=== PATIENT | male | born 1965 | race Caucasian/White ===

== ENCOUNTER 2017-10-29 10:54 | Day surgery (SDC) | payer BC ==
[2017-10-28 10:20] VITALS: BMI 35.2
[2017-10-29] MEDS ORDERED: CEFAZOLIN/Water 2 GM/20 ML SYRINGE ONE (12:00)
[2017-10-29 12:29] LABS: #Basophils 0.1 thou/uL (0.0-0.2); #Eosinphils 0.2 thou/uL (0.0-0.7); #Lymphocytes 2.9 thou/uL (1.20-3.40); #Monocytes 0.5 thou/uL (0.11-0.59); #Neutrophils 3.7 thou/uL (1.40-6.50); %Eosinophils 2.8 % (0.0-10.0); %Lymphocytes 38.9 % (21.0-51.0); %Monocytes 6.9 % (0.0-10.0); Hematocrit 39.3 % (42.0-52.0); Mean Platelet Volume 8.8 fL (7.4-10.4); Red Blood Cell (RBC) Count 4.87 mill/uL (4.70-6.10); White Blood Cell (WBC) Count 7.3 thou/uL (4.8-10.8)
[2017-10-29] MEDS ORDERED: Bupivacaine PF 0.5% 30 ML VIAL ONE (13:53)
[2017-10-29] MEDS ORDERED: Bacitracin Zinc Ointment 30 gm TUBE ONE (13:53)
[2017-10-29] MEDS ORDERED: Fentanyl 100 MCG/2 ML VIAL ONE (14:02)
[2017-10-29] MEDS ORDERED: Ondansetron HCl/PF 4 MG/2 ML Vial ONE (15:02)
[2017-10-29] MEDS ORDERED: ePHEDrine/0.9% NaCl/PF SYRINGE 50 mg/10 ml ONE (15:02)
[2017-10-29] MEDS ORDERED: Ketorolac Tromethamine 30 MG/ML VIAL ONE ×3 (15:02→15:26)
[2017-10-29] MEDS ORDERED: Propofol 200 MG/20 ML VIAL ONE (15:02)
[2017-10-29] MEDS ORDERED: Glycopyrrolate 0.2 MG/ML 5 ML SYRINGE ONE (15:02)
--- NOTE | 2017-10-29 19:09 | RAD ---
RIGHT WRIST THREE VIEWS 10/29/17 HISTORY: Intraoperative films. These C-arm projections show screw placement across the scaphoid. There is also plate and screws gael g the distal radius and ulna. IMPRESSION: Postoperative changes of the right wrist. There is once again noted to be screw placement across the scaphoid and a plate and screws along the distal ulna. There is now some surgical anchors along the d orsal side of the carpal bone region. In addition, on the C-arm views, there appears to be invaginati on of the capitate between the scaphoid and lunate. POS: [facility]
--- NOTE | 2017-11-01 13:59 | OP ---
DATE OF SURGERY: 10/29/2017 PREOPERATIVE DIAGNOSIS: Painful deep implant capitoscaphoid and capitolunate joints. FINDINGS: 1. Implants still in place but irritating the subcutaneous portion of the tendons. 2. A 5-mm widening of the scapholunate joint with no instability, but the capitate and lunate moved together while the scaphoid does not travel with the lunate indicative of dissociation and poss ible failed ligament repair. 3. No gross evidence of nonunion as of yet of the fracture but still some small gap seen in the scap hoid fracture from previous transscaphoid perilunate dislocation. PROCEDURE PERFORMED: 1. Removal of deep implant, . 2. C-arm supervision, [id number]. COMPLICATIONS: None. TOURNIQUET TIME: 12 minutes. DESCRIPTION OF PROCEDURE: After successful general endotracheal anesthesia with LMA technique, the l imb was prepped and draped. C-arm was brought into the field. We found the wires were located in th e sagittal plane and checked this area with 3 mL of normal saline then made an oblique 6-mm incision carried to skin and subcutaneous tissue to identify both wires. They came out easily. There is no c hange in alignment of the capitate, lunate, hamate, or any other bone seen in the C-arm except for wh en we did fluoroscopy, we could see there was a small amount of widening of the baseline 3-4 mm inter gab between the scaphoid and lunate into approximately 4-5 mm. The wires were now out, placed in a p rotective bag to be given to the patient in a sterile urine cup, irrigated the wound, deflated the to urniquet, obtained hemostasis, closed the wound with interrupted 4-0 nylon in a simple pattern. Bulk y dressing was applied along with palmar splint. The patient left the operating room without complic ations.
== END 2017-10-29 18:30 | disposition home or self-care (01) ==
LOC: SDC 10:54
PROVIDERS: ATTEND Orthopaedic Surgery Hand Surgery
PROC: 0XP60YZ Removal of Other Device from Right Upper Extremity, Open Approach (ICD-10-PCS; principal; 2017-10-29)
DX: T84.84XA Pain due to internal orthopedic prosthetic devices, implants and grafts, initial encounter (principal); I10 Essential (primary) hypertension; Z88.1 Allergy status to other antibiotic agents; Z79.899 Other long term (current) drug therapy; Z98.890 Other specified postprocedural states; Z87.891 Personal history of nicotine dependence
CPT/HCPCS: 36415; 76001; 85025; 93005; 93010; 96372; J1885; J2405; J2704; J3010; J3490; S0020

== ENCOUNTER 2019-05-04 10:13 | Outpatient (CLI) | payer BC ==
--- NOTE | 2019-05-04 14:37 | MRI ---
MRI LUMBAR SPINE NONCONTRAST: DATE: 05/04/19 HISTORY: 53-year-old male with lumbar radiculopathy. Right lower extremity pain, paresthesia, and numbness. Lo w back pain. COMPARISON: No prior lumbar spine MRIs. CT of chest/abdomen/pelvis of 06/05/17 used for counting of levels of the spine. Plain radiograph of 07/07/17 is also available. FINDINGS: There are 6 non-rib bearing lumbar-region vertebrae. However, when the 06/05/17 CT is reviewed, it is noted that there are only 11 paired ribs. Therefore, the last rib bearing vertebra will be designate d as T11, and the first non-rib bearing lumbar-type vertebra will be designated as T12. This would ma ke the lowest lumbar level L5 rather than L6. T12 would be the level of the old compression fracture, with mild anterior wedge compression loss of height. There is region of bone marrow edema at the ant erior inferior corner of T12, which probably represents Modic Type I change. The rest of the vertebra l body heights are maintained. T12-L1: Normal. L1-2: Normal. Conus medullaris terminates at mid L1 level. L2-3: Normal. L3-4: Mild disc space narrowing and mild disc desiccation. Mild diffuse disc bulge. Mild bilateral d egenerative facet changes. Mild bilateral neural foraminal stenosis. No significant central spinal ca nal stenosis. The disc bulge is asymmetrically larger at the left lateral and far lateral aspects of the disc, where there is peripheral, broad, crescentic annular fissure. L4-5: Moderate disc space narrowing. Slight degenerative retrolisthesis of L4 on L5. Schmorl's node at posterior superior end plate of L5 at midline. Diffuse disc bulge. Moderate right facet DJD. Mild to moderate left facet DJD. Severe right neural foraminal stenosis. Moderate to severe left neural fo raminal stenosis. Lateral recess stenosis bilaterally, right worse than left. Mild to moderate centra l spinal canal stenosis. Small posterior epidural fat pad. Moderate thecal sac stenosis. L5-S1: Two right-sided large transversely oriented screws from just lateral to the SI joint, across the right sacral ala, and distal tips to the left of midline in the sacral body, result in significan t magnetic susceptibility artifact that completely covers and obscures the contents of the spinal can al, and significant distorts the bilateral neural foramina, and also significantly partially obscures the disc space and the sacral bodies. IMPRESSION: 1. Transitional level at thoracolumbar junction. The patient only has 11 paired ribs. For the purpos es of this report, the first non-rib bearing vertebra is designated as T12 rather than L1. Lowest lum bar level is designated as L5. 2. Lumbar spondylosis, with moderate degenerative disc disease at L4-5. 3. Severe right neural foraminal stenosis and moderate-severe left neural foraminal stenosis at L4-5 . 4. Status post arthrodesis of right sacroiliac joint. Large ferromagnetic hardware causes severe art ifact that almost completely obscures the L5-S1 level. 5. Old mild compression fracture of T12. JN R POS: [facility]
== END 2019-05-04 10:14 | disposition home or self-care (01) ==
LOC: TBSIIMAG 10:13
PROVIDERS: ATTEND Neurological Surgery
DX: M51.16 Intervertebral disc disorders with radiculopathy, lumbar region (principal); M47.26 Other spondylosis with radiculopathy, lumbar region; M48.061 Spinal stenosis, lumbar region without neurogenic claudication; Z98.1 Arthrodesis status; Z87.81 Personal history of (healed) traumatic fracture
CPT/HCPCS: 72148

== ENCOUNTER 2021-11-17 16:34 | Outpatient (CLI) | payer BC ==
[2021-11-17 21:01] LABS: SARS-CoV-2 NAA Rapid Test Not Detected (NotDetected)
== END 2021-11-17 16:35 | disposition home or self-care (01) ==
LOC: LABBT 16:34
PROVIDERS: ATTEND Specialist
DX: Z01.812 Encounter for preprocedural laboratory examination (principal); N18.6 End stage renal disease; Z20.822 Contact with and (suspected) exposure to COVID-19
CPT/HCPCS: U0002

== ENCOUNTER 2021-11-18 09:35 | Inpatient (IN) | payer BC ==
[~2021-11-18 09:35] MED LIST: Heparin 10,000 UNITS/ 10 ML VIAL ONE
[2021-11-18] MEDS ORDERED: Bupivacaine PF 0.5% 30 ML VIAL ONE (10:18)
[2021-11-18] MEDS ORDERED: Heparin 10,000 UNITS/ 10 ML VIAL ONE (10:18)
[2021-11-18] MEDS ORDERED: Lidocaine 1% w/Epinephrine 1:100K 30 ML VIAL ONE (10:18)
[2021-11-18] MEDS ORDERED: ceFAZolin 2 GM/DEX 5% 100 ML BAG ONE (10:38)
[2021-11-18] MEDS ORDERED: Fentanyl 100 MCG/2 ML VIAL ONE (10:45)
[2021-11-18 10:51] LABS: #Basophils 0.1 thou/uL (0.0-0.2); #Eosinphils 0.3 thou/uL (0.0-0.7); #Monocytes 0.5 thou/uL (0.11-0.59); #Neutrophils 4.4 thou/uL (1.40-6.50); %Basophils 0.9 % (0.0-1.0); %Eosinophils 4.1 % (0.0-10.0); %Lymphocytes 16.1 % (21.0-51.0); %Monocytes 7.4 % (0.0-10.0); %Neutrophils 71.5 % (42.0-75.0); Mean Corpuscular HGB CONC 31.3 g/dL (32.0-36.0); Mean Corpuscular Hemoglobin 27.8 pg (27.0-31.0); Mean Corpuscular Volume 88.8 fL (78.0-98.0); Mean Platelet Volume 11.1 fL (7.4-10.4); Platelet Count 133 thou/uL (130-400); RBC Distribution Width 12.5 % (11.5-14.5); Red Blood Cell (RBC) Count 3.61 mill/uL (4.70-6.10); White Blood Cell (WBC) Count 6.2 thou/uL (4.8-10.8)
[2021-11-18 11:12] LABS: Anion Gap 15 mmol/L (10-20); BUN (Urea Nitrogen) 73 mg/dL (8.4-25.7); Calc. Creatinine Clearance 0 mL/min (70-130); Calcium 8.5 mg/dL (7.8-10.44); Carbon Dioxide 22 mmol/L (22-29); Chloride 108 mmol/L (98-107); Glucose 95 mg/dL (70-105); Potassium 5.1 mmol/L (3.5-5.1); Sodium 140 mmol/L (136-145)
[2021-11-18] MEDS ORDERED: Midazolam HCl 2 mg/2 ml Vial ONE (11:55)
[2021-11-18] MEDS ORDERED: Lidocaine 1% PF 5 ML VIAL ONE (11:58)
[2021-11-18] MEDS ORDERED: Sodium Chloride 0.9% 10 ML ONE (11:58)
[2021-11-18] MEDS ORDERED: Ondansetron PF 4 MG/2 ML Vial IVP PRN (12:36)
[2021-11-18] MEDS ORDERED: hydrALAZINE 20 MG/ML VIAL SLOW IVP PRN (12:36)
[2021-11-18] MEDS ORDERED: Ondansetron ODT 4 MG TAB PO PRN (12:36)
[2021-11-18 15:53] LABS: HBSAg Index 0.26 S/CO (0-0.99); Hep B Core Total Ab Non-Reactive (NonReactive); Hep B Core Total Index 0.06 S/CO (0-0.79); Hep B Surf Ag Non-Reactive S/CO (NonReactive)
[2021-11-18 15:54] LABS: HBSAB Concentration Less than 8.00 mIU/mL; Hep B Surf AB Non-Reactive (NonReactive)
[2021-11-18 15:55] LABS: Hep C IgG Ab Non-Reactive (NonReactive); Hep C Index 0.19 S/CO (0-0.79)
[2021-11-18] MEDS: hydrALAZINE 25 MG TAB PO SCH ×3 (16:13→20:37)
[2021-11-18 17:02] VITALS: BMI 34.4
[2021-11-18] MEDS ORDERED: Calcium Carbonate 500 MG ChewTAB PO PRN (17:24)
[2021-11-18] MEDS ORDERED: Senokot S 8.6-50 MG TAB PO PRN (17:24)
[2021-11-18] MEDS ORDERED: Acetaminophen 325 MG TAB PO PRN (17:24)
[2021-11-18] MEDS ORDERED: Morphine 4 MG/ML VIAL SLOW IVP PRN (18:47)
[2021-11-18] MEDS: Famotidine 20 MG TAB PO SCH (20:38)
[2021-11-18] MEDS: traMADol HCl 50 MG TAB PO PRN (20:38)
[2021-11-19 06:51] LABS: #Basophils 0.1 thou/uL (0.0-0.2); #Eosinphils 0.3 thou/uL (0.0-0.7); #Lymphocytes 1.1 thou/uL (1.20-3.40); #Monocytes 0.6 thou/uL (0.11-0.59); #Neutrophils 5.3 thou/uL (1.40-6.50); %Basophils 0.9 % (0.0-1.0); %Eosinophils 3.8 % (0.0-10.0); %Lymphocytes 15.1 % (21.0-51.0); %Monocytes 8.2 % (0.0-10.0); Hemoglobin 10.9 g/dL (14.0-18.0); Mean Corpuscular HGB CONC 33.2 g/dL (32.0-36.0); Mean Corpuscular Hemoglobin 28.9 pg (27.0-31.0); Mean Corpuscular Volume 87.2 fL (78.0-98.0); Mean Platelet Volume 10.3 fL (7.4-10.4); Platelet Count 145 thou/uL (130-400); RBC Distribution Width 12.6 % (11.5-14.5); Red Blood Cell (RBC) Count 3.78 mill/uL (4.70-6.10); White Blood Cell (WBC) Count 7.4 thou/uL (4.8-10.8)
[2021-11-19 07:12] LABS: Anion Gap 15 mmol/L (10-20); BUN (Urea Nitrogen) 50 mg/dL (8.4-25.7); Calc. Creatinine Clearance 20 mL/min (70-130); Calcium 8.6 mg/dL (7.8-10.44); Carbon Dioxide 23 mmol/L (22-29); Chloride 104 mmol/L (98-107); Glucose 94 mg/dL (70-105); Potassium 4.5 mmol/L (3.5-5.1); Sodium 137 mmol/L (136-145)
[2021-11-19] MEDS ORDERED: Tuberculin PPD 0.1 ML VIAL I-DERMAL SCH (08:00)
[2021-11-19] MEDS: hydrALAZINE 25 MG TAB PO SCH ×4 (08:30→20:09)
[2021-11-19] MEDS ORDERED: Heparin 10,000 UNITS/ 10 ML VIAL ONE (08:36)
[2021-11-19] MEDS ORDERED: Furosemide 20 MG TAB PO SCH (09:00)
[2021-11-19 12:48] LABS: HBCM Index 0.06 S/CO (0-0.79); HBSAg Index 0.28 S/CO (0-0.99); Hep A IgM AB Non-Reactive (NonReactive); Hep A IgM S/CO 0.13 S/CO (0-0.79); Hep B Surf Ag Non-Reactive S/CO (NonReactive); Hep C IgG Ab Non-Reactive (NonReactive); Hep C Index 0.19 S/CO (0-0.79); Hepatitis B Core IgM Abs Non-Reactive (NonReactive)
[2021-11-19] MEDS: Labetalol 100 MG TAB PO SCH (13:18)
[2021-11-19] MEDS: Famotidine 20 MG TAB PO SCH (20:10)
[2021-11-20] MEDS: hydrALAZINE 25 MG TAB PO SCH ×3 (05:09→17:42)
[2021-11-20] MEDS: Labetalol 100 MG TAB PO SCH (05:10)
[2021-11-20] MEDS ORDERED: Lidocaine 1% (PF) 30 ML VIAL ONE (06:25)
[2021-11-20] MEDS ORDERED: EPINEPHrine 1 MG/ML AMP ONE (06:25)
[2021-11-20] MEDS ORDERED: Heparin 5,000 UNITS/ML VIAL ONE (06:25)
[2021-11-20] MEDS ORDERED: Bupivacaine PF 0.5% 30 ML VIAL ONE (06:25)
[2021-11-20] MEDS ORDERED: Protamine Sulfate 50 MG/5 ML VIAL ONE (06:35)
[2021-11-20] MEDS ORDERED: Heparin 10,000 UNITS/ 10 ML VIAL ONE (06:35)
[2021-11-20] MEDS ORDERED: Fentanyl 100 MCG/2 ML VIAL ONE (07:06)
[2021-11-20] MEDS ORDERED: Sodium Chloride 0.9% 100 ML ONE (07:54)
[2021-11-20] MEDS ORDERED: CEFAZOLIN 1 GM VIAL ONE (07:54)
[2021-11-20] MEDS ORDERED: Promethazine HCl 25 MG/ML VIAL IVPB PRN (09:58)
[2021-11-20] MEDS ORDERED: Ondansetron HCl/PF 4 MG/2 ML Vial IVP PRN (09:58)
[2021-11-20] MEDS ORDERED: Promethazine HCl 25 MG/ML VIAL IM PRN (09:58)
[2021-11-20] MEDS: traMADol HCl 50 MG TAB PO PRN (15:16)
[2021-11-20 17:22] VITALS: TEMP 97.7
[2021-11-20 17:43] VITALS: BP 149/92
== END 2021-11-20 18:31 | disposition home or self-care (01) | DRG 673 ==
LOC: SDC 09:35 → T4-A 12:44 → EDSTATUS 16:27
PROVIDERS: ADMIT Internal Medicine; ATTEND Internal Medicine
PROC: 5A1D70Z Performance of Urinary Filtration, Intermittent, Less than 6 Hours Per Day (ICD-10-PCS; principal; 2021-11-18)
PROC: 0JH60XZ Insertion of Tunneled Vascular Access Device into Chest Subcutaneous Tissue and Fascia, Open Approach (ICD-10-PCS; 2021-11-18)
PROC: 02HV33Z Insertion of Infusion Device into Superior Vena Cava, Percutaneous Approach (ICD-10-PCS; 2021-11-18)
PROC: B5181ZA Fluoroscopy of Superior Vena Cava using Low Osmolar Contrast, Guidance (ICD-10-PCS; 2021-11-18)
PROC: B548ZZA Ultrasonography of Superior Vena Cava, Guidance (ICD-10-PCS; 2021-11-18)
PROC: 031C0ZF Bypass Left Radial Artery to Lower Arm Vein, Open Approach (ICD-10-PCS; 2021-11-20)
PROC: 0WHG33Z Insertion of Infusion Device into Peritoneal Cavity, Percutaneous Approach (ICD-10-PCS; 2021-11-20)
DX: I12.0 Hypertensive chronic kidney disease with stage 5 chronic kidney disease or end stage renal disease (principal); N18.6 End stage renal disease; E87.2 Acidosis; E87.5 Hyperkalemia; E87.70 Fluid overload, unspecified; M10.9 Gout, unspecified; D63.1 Anemia in chronic kidney disease; Z88.1 Allergy status to other antibiotic agents; Z88.8 Allergy status to other drugs, medicaments and biological substances; Z79.899 Other long term (current) drug therapy; Z90.49 Acquired absence of other specified parts of digestive tract; Z82.49 Family history of ischemic heart disease and other diseases of the circulatory system; Z84.1 Family history of disorders of kidney and ureter; Z99.2 Dependence on renal dialysis
CPT/HCPCS: 36415; 71045; 80048; 80074; 85025; 86580; 86704; 86706; 86803; 87340; 90935; 93005; 93010; C1752; C1776; G0257; J0171; J0360; J0690; J1644; J2001; J2250; J2720; J3010; J3490; S0020; U0002

== ENCOUNTER 2022-07-06 11:42 | Outpatient (CLI) | payer BC | END 2022-07-06 11:43 | disposition home or self-care (01) | LOC: LABBT 11:42 | PROVIDERS: ATTEND Specialist | DX: Z01.818 Encounter for other preprocedural examination (principal); K40.90 Unilateral inguinal hernia, without obstruction or gangrene, not specified as recurrent; Z20.822 Contact with and (suspected) exposure to COVID-19 | CPT/HCPCS: 87811; 93005; 93010 ==

== ENCOUNTER 2022-07-08 06:08 | Day surgery (SDC) | payer BC ==
[2022-07-03 14:27] VITALS: BMI 32.8
[2022-07-08] MEDS ORDERED: Acetaminophen 500 MG TAB ONE (06:46)
[2022-07-08] MEDS ORDERED: Gabapentin 300 MG CAP ONE (06:46)
[2022-07-08] MEDS ORDERED: Bupivacaine/Epinephrine 0.25% 30 ML VIAL ONE (06:55)
[2022-07-08] MEDS ORDERED: fentaNYL Citrate/PF 100 MCG/2 ML SYRINGE ONE (06:57)
[2022-07-08] MEDS ORDERED: CEFAZOLIN 2 GM VIAL ONE (07:26)
[2022-07-08] MEDS ORDERED: Sodium Chloride 0.9% 100 ML ONE (07:26)
[2022-07-08 07:34] LABS: #Eosinphils 0.2 thou/uL (0.0-0.7); #Lymphocytes 1.2 thou/uL (1.20-3.40); #Monocytes 0.5 thou/uL (0.11-0.59); #Neutrophils 3.9 thou/uL (1.40-6.50); %Basophils 0.8 % (0.0-1.0); %Eosinophils 3.6 % (0.0-10.0); %Lymphocytes 20.7 % (21.0-51.0); %Monocytes 9.1 % (0.0-10.0); %Neutrophils 65.8 % (42.0-75.0); Anion Gap 17 mmol/L (10-20); BUN (Urea Nitrogen) 50 mg/dL (8.4-25.7); Calc. Creatinine Clearance 18 mL/min (70-130); Calcium 8.8 mg/dL (7.8-10.44); Carbon Dioxide 25 mmol/L (22-29); Chloride 103 mmol/L (98-107); Estimated GFR 9; Glucose 99 mg/dL (70-105); Mean Corpuscular HGB CONC 33.9 g/dL (32.0-36.0); Mean Corpuscular Hemoglobin 31.6 pg (27.0-31.0); Mean Corpuscular Volume 93.1 fL (78.0-98.0); Mean Platelet Volume 9.3 fL (7.4-10.4); Platelet Count 120 thou/uL (130-400); Potassium 4.7 mmol/L (3.5-5.1); RBC Distribution Width 12.1 % (11.5-14.5); Red Blood Cell (RBC) Count 3.79 mill/uL (4.70-6.10); Sodium 140 mmol/L (136-145); White Blood Cell (WBC) Count 5.9 thou/uL (4.8-10.8)
[2022-07-08] MEDS ORDERED: SUGAMMADEX SODIUM 200 MG/2 ML VIAL ONE (07:44)
[2022-07-08] MEDS ORDERED: PROPOFOL 200 MG/20 ML VIAL ONE (07:51)
[2022-07-08] MEDS ORDERED: Rocuronium Bromide 10 MG/ML (10ML VIAL) ONE (07:51)
[2022-07-08] MEDS ORDERED: Lidocaine 1% PF 5 ML VIAL ONE (07:51)
[2022-07-08] MEDS ORDERED: Neostigmine Methylsulfate 3 MG/3 ML SYRINGE ONE (07:51)
[2022-07-08] MEDS ORDERED: Glycopyrrolate 0.2 MG/ML 5 ML SYRINGE ONE (07:51)
[2022-07-08] MEDS ORDERED: Labetalol HCl 100 MG/20 ML VIAL ONE (09:40)
[2022-07-08] MEDS ORDERED: Fentanyl 100 MCG/2 ML VIAL ONE (09:44)
[2022-07-08] MEDS ORDERED: HYDROcodone/Acetaminophen 5/325 mg Tablet ONE (11:46)
== END 2022-07-08 12:01 | disposition home or self-care (01) ==
LOC: SDC 06:08
PROVIDERS: ATTEND Specialist
PROC: 0YUA4JZ Supplement Bilateral Inguinal Region with Synthetic Substitute, Percutaneous Endoscopic Approach (ICD-10-PCS; principal; 2022-07-08)
PROC: 8E0W4CZ Robotic Assisted Procedure of Trunk Region, Percutaneous Endoscopic Approach (ICD-10-PCS; principal; 2022-07-08)
DX: K40.20 Bilateral inguinal hernia, without obstruction or gangrene, not specified as recurrent (principal); I12.0 Hypertensive chronic kidney disease with stage 5 chronic kidney disease or end stage renal disease; N18.6 End stage renal disease; Z79.899 Other long term (current) drug therapy; Z88.1 Allergy status to other antibiotic agents; Z99.2 Dependence on renal dialysis
CPT/HCPCS: 80048; 85025; C1781; J0690; J2704; J3010; J3490

== ENCOUNTER 2024-09-06 09:37 | Day surgery (SDC) | payer BC ==
[2024-09-05 11:43] VITALS: BMI 33.3
[2024-09-06 11:46] LABS: #Basophils Less than 0.03 10x3/uL (0.0-0.2); %Basophils 0.5 % (0.0-1.0); %Eosinophils 11.9 % (0.0-10.0); %Lymphocytes 15.6 % (21.0-51.0); %Monocytes 10.2 % (0.0-10.0); %Neutrophils 61.6 % (42.0-75.0); Hematocrit 25.3 % (42.0-52.0); Hemoglobin 8.1 g/dL (14.0-18.0); Mean Corpuscular Hemoglobin 28.7 pg (27.0-31.0); Mean Corpuscular Volume 89.7 fL (78.0-98.0); Mean Platelet Volume 10.8 fL (7.4-10.4); Platelet Count 133 10x3/uL (130-400); RBC Distribution Width 14.4 % (11.5-14.5); Red Blood Cell (RBC) Count 2.82 mill/uL (4.70-6.10)
[2024-09-06 12:24] LABS: Anion Gap 22 mmol/L (10-20); BUN (Urea Nitrogen) 79 mg/dL (8.4-25.7); Calc. Creatinine Clearance 7 mL/min (70-130); Calcium 7.8 mg/dL (7.8-10.44); Carbon Dioxide 24 mmol/L (22-29); Chloride 97 mmol/L (98-107); Estimated GFR 3; Glucose 95 mg/dL (70-105); Potassium 3.5 mmol/L (3.5-5.1); Sodium 139 mmol/L (136-145)
[2024-09-06] MEDS ORDERED: Lidocaine 1% PF 5 ML VIAL ONE (12:24)
[2024-09-06] MEDS ORDERED: PROPOFOL 200 MG/20 ML VIAL ONE (12:24)
[2024-09-06] MEDS ORDERED: PHENYLEPHRINE-NS 100 MCG/ML 10 ML SYRINGE ONE (12:24)
== END 2024-09-06 13:25 | disposition home or self-care (01) ==
LOC: SDC 09:37
PROVIDERS: ATTEND Internal Medicine Cardiovascular Disease
PROC: 5A2204Z Restoration of Cardiac Rhythm, Single (ICD-10-PCS; principal; 2024-09-06)
PROC: B246ZZ4 Ultrasonography of Right and Left Heart, Transesophageal (ICD-10-PCS; principal; 2024-09-06)
DX: I48.0 Paroxysmal atrial fibrillation (principal); I25.5 Ischemic cardiomyopathy; I08.1 Rheumatic disorders of both mitral and tricuspid valves; I13.0 Hypertensive heart and chronic kidney disease with heart failure and stage 1 through stage 4 chronic kidney disease, or unspecified chronic kidney disease; N18.6 End stage renal disease; I50.22 Chronic systolic (congestive) heart failure; Z99.2 Dependence on renal dialysis; I48.19 Other persistent atrial fibrillation; Z90.49 Acquired absence of other specified parts of digestive tract; Z79.02 Long term (current) use of antithrombotics/antiplatelets; Z79.01 Long term (current) use of anticoagulants; Z79.899 Other long term (current) drug therapy; Z95.5 Presence of coronary angioplasty implant and graft
CPT/HCPCS: 36415; 80048; 85025; 92960; 93312; J2704